=== PATIENT | female | born 1970 | race Caucasian/White ===

== ENCOUNTER 2023-04-06 06:51 | Day surgery (SDC) | payer BC, OTHER ==
[~2023-04-06] VITALS: Ht 177.8 cm; Wt 74.8 kg
[~2023-04-06 06:51] MED LIST: PEPCID20 MG PO; SYNTHROID25 MCG PO
[2023-04-06 09:13] VITALS: BP 103/75
== END 2023-04-06 09:35 | disposition home or self-care (01) | DRG 951 ==
LOC: ENDO 06:51 → ORM 09:30 → ENDO 09:30 → ORM 10:30 → ENDO 10:30
PROVIDERS: ATTEND Surgery
PROC: 0DJD8ZZ Inspection of Lower Intestinal Tract, Via Natural or Artificial Opening Endoscopic (ICD-10-PCS; principal; 2023-04-06)
DX: Z12.11 Encounter for screening for malignant neoplasm of colon (principal); K64.4 Residual hemorrhoidal skin tags; K64.8 Other hemorrhoids; Z83.71 Family history of colonic polyps; Z90.411 Acquired partial absence of pancreas